=== PATIENT | female | born 1975 | race African-American/Black ===

== ENCOUNTER 2018-10-28 15:21 | Inpatient (IN) | payer MEDICAID, OTHER ==
[~2018-10-28] VITALS: Ht 144.8 cm; Wt 108.4 kg
[2018-10-28] MEDS ORDERED: PREDNISONE 20MG TABLET PO STA (15:52)
[2018-10-28] MEDS ORDERED: ALBUTEROL (0.083%) 2.5MG/3ML NEB HHN STA (15:52)
[2018-10-28 16:52] LABS: BASOPHILS % 0.7 % (0.0-2.0); EOSINOPHILS % 1.2 % (0.0-5.0); HEMATOCRIT. 37.6 % (36.0-48.0); MEAN CORPUSCULAR HEMOGLOBIN 26.4 pg (28.0-32.0); MEAN CORPUSCULAR VOLUME 82.5 fL (81.0-99.0); MEAN PLATELET VOLUME 7.8 fl (7.4-10.4); MONOCYTES % 7.6 % (2.0-8.0); NEUTROPHILS % 72.5 % (40.0-76.0); PLATELET 315 x1000/uL (130-400); RED BLOOD CELL COUNT 4.56 mill/uL (4.2-5.4); RED CELL DISTRIBUTION WIDTH 18.9 % (11.6-14.6)
[2018-10-28 16:57] LABS: CHLORIDE 108 mEq/L (98-107)
[2018-10-28 16:58] LABS: HCG SCREEN NEGATIVE
[2018-10-28] MEDS ORDERED: FUROSEMIDE 40MG/4ML VIAL IV ONE (17:30)
[2018-10-28] MEDS ORDERED: ASPIRIN 81MG TABLET PO ONE (17:30)
[2018-10-28] MEDS ORDERED: HYDROCODONE/ACETAMINOPHEN 10/325MG TABLET PO PRN (21:15)
[2018-10-28] MEDS ORDERED: ONDANSETRON HCL 4MG/2ML INJ IV PRN (21:15)
[2018-10-28] MEDS ORDERED: MAGNESIUM/ALUMINUM HYDROXIDE/SIMETHICONE 30ML UDC PO PRN (21:15)
[2018-10-28] MEDS ORDERED: GUAIFENESIN 200MG/10ML SUGAR FREE UDC PO PRN (21:15)
[2018-10-28 21:36] VITALS: BP 154/89
[2018-10-28] MEDS ORDERED: DEXTROSE 50% WATER 50ML SYRINGE IV PRN (22:45)
[2018-10-28] MEDS ORDERED: FLOV11 IH (23:14)
[2018-10-28] MEDS ORDERED: METF-414 PO (23:14)
[2018-10-28] MEDS ORDERED: FURO-151 PO (23:14)
[2018-10-28] MEDS ORDERED: ASPI-1393 PO (23:14)
[2018-10-28] MEDS ORDERED: ATOR10TA PO (23:14)
[2018-10-28] MEDS ORDERED: BENA40TA9 PO (23:14)
[2018-10-28] MEDS ORDERED: ALBU05 IH (23:14)
[2018-10-28] MEDS ORDERED: RISP1TAB26 PO (23:14)
[2018-10-28] MEDS ORDERED: COREG PO (23:14)
[2018-10-28] MEDS: IPRATROPIUM/ALBUTEROL 0.5-3(2.5)MG/3ML NEB NEB PRN (23:54)
[2018-10-29] VITALS: BP 170/94
[2018-10-29 02:25] LABS: CHLORIDE 109 mEq/L (98-107)
[2018-10-29 02:35] LABS: CREATINE KINASE 104 IU/L (26-192)
[2018-10-29 02:37] LABS: CREATINE KINASE MB FRACTION 1.5 ng/mL (0.5-3.6)
[2018-10-29] MEDS: IPRATROPIUM/ALBUTEROL 0.5-3(2.5)MG/3ML NEB NEB PRN ×2 (03:51→20:56)
[2018-10-29 04:00] VITALS: BP 178/95
[2018-10-29] MEDS: METHYLPREDNISOLONE SOD SUCC 40 MG/ML VIAL IV SCH ×3 (05:11→21:26)
[2018-10-29] MEDS: CLONIDINE 0.1MG TABLET PO PRN (05:11)
[2018-10-29 06:35] LABS: BASOPHILS % 0.4 % (0.0-2.0); HEMATOCRIT. 39.1 % (36.0-48.0); HEMOGLOBIN. 12.4 g/dL (12.0-16.0); MEAN CORPUSCULAR HEMOGLOBIN 26.3 pg (28.0-32.0); MEAN CORPUSCULAR VOLUME 82.8 fL (81.0-99.0); MEAN PLATELET VOLUME 8.2 fl (7.4-10.4); MONOCYTES % 5.5 % (2.0-8.0); NEUTROPHILS % 84.1 % (40.0-76.0); PLATELET 372 x1000/uL (130-400); RED BLOOD CELL COUNT 4.72 mill/uL (4.2-5.4); RED CELL DISTRIBUTION WIDTH 19.1 % (11.6-14.6)
[2018-10-29 06:38] LABS: CLARITY URINE CLEAR (CLEAR); COLOR URINE YELLOW (YELLOW); KETONES URINE NEGATIVE (NEGATIVE); LEUKOCYTE ESTERASE URINE TRACE (NEGATIVE); NITRITE URINE NEGATIVE (NEGATIVE); OCCULT BLOOD URINE 3+ (NEGATIVE); PROTEIN URINE TRACE (NEGATIVE); SPECIFIC GRAVITY URINE 1.017 (1.005-1.030)
[2018-10-29] MEDS: BLOOD SUGAR DIAGNOSTIC STRIP TEST SCH ×4 (06:44→21:28)
[2018-10-29 07:05] LABS: CREATINE KINASE MB FRACTION 1.5 ng/mL (0.5-3.6)
[2018-10-29 07:12] LABS: METHADONE URINE SCREEN NEGATIVE (NEGATIVE); OPIATES URINE SCREEN NEGATIVE (NEGATIVE)
[2018-10-29 07:13] LABS: *AMPHETAMINES SCREEN URINE NEGATIVE (NEGATIVE); *BARBITURATES SCREEN URINE NEGATIVE (NEGATIVE); *BENZODIAZEPINES SCREEN URINE NEGATIVE (NEGATIVE); *COCAINE SCREEN URINE NEGATIVE (NEGATIVE); CANNABINOID URINE SCREEN NEGATIVE (NEGATIVE); PHENCYCLIDINE URINE SCREEN NEGATIVE (NEGATIVE)
[2018-10-29] MEDS: INSULIN LISPRO 100 UNITS/ML SUBCUT SCH ×4 (07:50→22:00)
[2018-10-29 08:12] VITALS: BP 179/122
[2018-10-29] MEDS: FUROSEMIDE 40MG/4ML VIAL IV SCH ×2 (10:27→18:33)
[2018-10-29] MEDS: ASPIRIN 81MG EC TABLET PO SCH (10:28)
[2018-10-29] MEDS: ENOXAPARIN 30MG/0.3ML SYR SUBCUT SCH ×2 (10:28→21:27)
[2018-10-29 12:52] VITALS: BP 153/88
[2018-10-29 16:05] VITALS: BP 152/83
[2018-10-29 20:00] VITALS: BP 151/78
[2018-10-29] MEDS: CARVEDILOL 6.25 MG TABLET PO SCH (21:28)
[2018-10-29] MEDS: AMLODIPINE 5MG TABLET PO SCH (21:28)
[2018-10-29] MEDS ORDERED: IOHEXOL-350 100 ML BOTTLE ONE (22:10)
[2018-10-30] VITALS: BP 164/103
[2018-10-30] MEDS: CLONIDINE 0.1MG TABLET PO PRN (00:45)
[2018-10-30 04:00] VITALS: BP 159/98
[2018-10-30] MEDS: METHYLPREDNISOLONE SOD SUCC 40 MG/ML VIAL IV SCH ×3 (05:12→21:42)
[2018-10-30 06:49] LABS: HEMATOCRIT. 37.6 % (36.0-48.0); HEMOGLOBIN. 12.1 g/dL (12.0-16.0); MEAN CORPUSCULAR HEMOGLOBIN 26.6 pg (28.0-32.0); MEAN CORPUSCULAR VOLUME 82.4 fL (81.0-99.0); MEAN PLATELET VOLUME 8.3 fl (7.4-10.4); PLATELET 372 x1000/uL (130-400); RED BLOOD CELL COUNT 4.56 mill/uL (4.2-5.4); RED CELL DISTRIBUTION WIDTH 19.1 % (11.6-14.6)
[2018-10-30 07:01] LABS: CHLORIDE 103 mEq/L (98-107)
[2018-10-30 08:00] VITALS: BP 147/91
[2018-10-30] MEDS: BLOOD SUGAR DIAGNOSTIC STRIP TEST SCH ×4 (08:03→21:50)
[2018-10-30] MEDS: INSULIN LISPRO 100 UNITS/ML SUBCUT SCH ×3 (08:18→21:48)
[2018-10-30] MEDS: ASPIRIN 81MG EC TABLET PO SCH (08:45)
[2018-10-30] MEDS: FUROSEMIDE 40MG/4ML VIAL IV SCH ×2 (08:45→16:51)
[2018-10-30] MEDS: AMLODIPINE 5MG TABLET PO SCH ×2 (08:46→21:43)
[2018-10-30] MEDS: CARVEDILOL 6.25 MG TABLET PO SCH ×2 (08:46→21:43)
[2018-10-30] MEDS: ENOXAPARIN 30MG/0.3ML SYR SUBCUT SCH ×2 (08:47→21:42)
[2018-10-30 12:00] VITALS: BP 136/90
[2018-10-30 16:00] VITALS: BP 144/88
[2018-10-30 19:16] LABS: PLATELET ESTIMATE NORMAL
[2018-10-30 20:00] VITALS: BP 166/102
[2018-10-31] VITALS: BP 151/98
[2018-10-31 04:00] VITALS: BP 155/87
[2018-10-31] MEDS: METHYLPREDNISOLONE SOD SUCC 40 MG/ML VIAL IV SCH ×3 (05:08→21:44)
[2018-10-31] MEDS: BLOOD SUGAR DIAGNOSTIC STRIP TEST SCH ×4 (06:52→20:49)
[2018-10-31 07:37] LABS: CHLORIDE 103 mEq/L (98-107)
[2018-10-31] MEDS: INSULIN LISPRO 100 UNITS/ML SUBCUT SCH ×4 (07:54→21:56)
[2018-10-31 07:59] LABS: PHOSPHORUS 3.6 mg/dL (2.5-4.9)
[2018-10-31 08:00] VITALS: BP 166/103
[2018-10-31] MEDS: AMLODIPINE 5MG TABLET PO SCH ×2 (08:36→20:49)
[2018-10-31] MEDS: ASPIRIN 81MG EC TABLET PO SCH (08:36)
[2018-10-31] MEDS: CARVEDILOL 6.25 MG TABLET PO SCH ×2 (08:37→20:49)
[2018-10-31] MEDS: ENOXAPARIN 30MG/0.3ML SYR SUBCUT SCH ×2 (08:37→20:47)
[2018-10-31] MEDS ORDERED: FLUTICASONE PROPIONATE 50MCG/SPRAY BOTTLE BOTHNSTRLS SCH (09:00)
[2018-10-31] MEDS: FUROSEMIDE 40MG/4ML VIAL IV SCH ×2 (10:17→17:48)
[2018-10-31 12:00] VITALS: BP 146/86
[2018-10-31] MEDS: FLUTICASONE PROPIONATE 50MCG/SPRAY BOTTLE BOTHNSTRLS SCH ×2 (13:00→20:47)
[2018-10-31] MEDS: GUAIFENESIN-DM 200MG-20MG/10ML UDC PO PRN (14:26)
[2018-10-31] MEDS: CLONIDINE 0.2MG TABLET PO SCH ×2 (14:26→21:45)
[2018-10-31 16:00] VITALS: BP 151/96
[2018-10-31 19:58] VITALS: BP 135/68
[2018-11-01] VITALS: BP 122/51
[2018-11-01 04:00] VITALS: BP 142/52
[2018-11-01] MEDS: METHYLPREDNISOLONE SOD SUCC 40 MG/ML VIAL IV SCH ×2 (05:17→13:41)
[2018-11-01] MEDS: CLONIDINE 0.2MG TABLET PO SCH ×3 (05:17→21:16)
[2018-11-01] MEDS: BLOOD SUGAR DIAGNOSTIC STRIP TEST SCH ×4 (06:41→21:16)
[2018-11-01 08:00] VITALS: BP 124/94
[2018-11-01] MEDS: ACETYLCYSTEINE 100MG/ML 10% VIAL 4ML INH SCH (09:04)
[2018-11-01] MEDS: FUROSEMIDE 40MG/4ML VIAL IV SCH ×2 (09:10→21:17)
[2018-11-01] MEDS: ENOXAPARIN 30MG/0.3ML SYR SUBCUT SCH ×2 (09:11→21:17)
[2018-11-01] MEDS: ASPIRIN 81MG EC TABLET PO SCH (09:11)
[2018-11-01] MEDS: AMLODIPINE 5MG TABLET PO SCH ×2 (09:12→21:15)
[2018-11-01] MEDS: CARVEDILOL 6.25 MG TABLET PO SCH ×2 (09:12→21:16)
[2018-11-01] MEDS: FLUTICASONE PROPIONATE 50MCG/SPRAY BOTTLE BOTHNSTRLS SCH ×3 (09:23→21:17)
[2018-11-01] MEDS: INSULIN LISPRO 100 UNITS/ML SUBCUT SCH ×4 (09:29→21:15)
[2018-11-01 12:00] VITALS: BP 158/100
[2018-11-01] MEDS ORDERED: CEFTRIAXONE 1 G PREMIX 50 ML IV SCH (17:30)
[2018-11-01 20:00] VITALS: BP 143/68
[2018-11-01] MEDS: IPRATROPIUM/ALBUTEROL 0.5-3(2.5)MG/3ML NEB HHN SCH (20:46)
[2018-11-01] MEDS: CEFTRIAXONE 1 G PREMIX 50 ML IV SCH (21:16)
[2018-11-01] MEDS: GUAIFENESIN-DM 200MG-20MG/10ML UDC PO PRN (22:22)
[2018-11-01] MEDS: DOCUSATE SODIUM 100MG CAPSULE PO PRN (22:23)
[2018-11-02] VITALS (7 sets, daily range): BP systolic 102–160; BP diastolic 70–96
[2018-11-02] MEDS: IPRATROPIUM/ALBUTEROL 0.5-3(2.5)MG/3ML NEB HHN SCH ×7 (04:00→23:50)
[2018-11-02] MEDS: CLONIDINE 0.2MG TABLET PO SCH ×3 (05:11→21:16)
[2018-11-02] MEDS: BLOOD SUGAR DIAGNOSTIC STRIP TEST SCH ×4 (06:43→21:17)
[2018-11-02] MEDS: INSULIN LISPRO 100 UNITS/ML SUBCUT SCH ×4 (07:50→21:15)
[2018-11-02] MEDS ORDERED: PREDNISONE 20MG TABLET PO SCH (09:00)
[2018-11-02] MEDS: FLUTICASONE PROPIONATE 50MCG/SPRAY BOTTLE BOTHNSTRLS SCH ×2 (09:28→21:17)
[2018-11-02] MEDS: FUROSEMIDE 40MG/4ML VIAL IV SCH ×2 (09:29→18:31)
[2018-11-02] MEDS: ASPIRIN 81MG EC TABLET PO SCH (09:29)
[2018-11-02] MEDS: CARVEDILOL 6.25 MG TABLET PO SCH ×2 (09:29→21:16)
[2018-11-02] MEDS: AMLODIPINE 5MG TABLET PO SCH ×2 (09:30→21:16)
[2018-11-02] MEDS: ENOXAPARIN 30MG/0.3ML SYR SUBCUT SCH ×2 (09:31→21:17)
[2018-11-02] MEDS: ACETYLCYSTEINE 100MG/ML 10% VIAL 4ML INH SCH ×2 (16:59→23:50)
[2018-11-02] MEDS: DOCUSATE SODIUM 100MG CAPSULE PO PRN (21:16)
[2018-11-02] MEDS: CEFTRIAXONE 1 G PREMIX 50 ML IV SCH (21:17)
[2018-11-02] MEDS: GUAIFENESIN-DM 200MG-20MG/10ML UDC PO PRN (21:17)
[2018-11-03] VITALS: BP 151/90
[2018-11-03 04:00] VITALS: BP 157/102
[2018-11-03] MEDS: IPRATROPIUM/ALBUTEROL 0.5-3(2.5)MG/3ML NEB HHN SCH ×5 (05:29→22:55)
[2018-11-03] MEDS: CLONIDINE 0.2MG TABLET PO SCH ×3 (05:42→21:36)
[2018-11-03] MEDS: BLOOD SUGAR DIAGNOSTIC STRIP TEST SCH ×4 (06:31→21:35)
[2018-11-03 07:10] LABS: BASOPHILS % 0.2 % (0.0-2.0); EOSINOPHILS % 0.2 % (0.0-5.0); HEMATOCRIT. 42.1 % (36.0-48.0); HEMOGLOBIN. 13.2 g/dL (12.0-16.0); LYMPHOCYTES % 16.5 % (20.0-50.0); MEAN CORPUSCULAR VOLUME 83.1 fL (81.0-99.0); MEAN PLATELET VOLUME 8.2 fl (7.4-10.4); MONOCYTES % 11.2 % (2.0-8.0); NEUTROPHILS % 71.9 % (40.0-76.0); PLATELET 415 x1000/uL (130-400); RED BLOOD CELL COUNT 5.07 mill/uL (4.2-5.4); RED CELL DISTRIBUTION WIDTH 18.2 % (11.6-14.6)
[2018-11-03] MEDS: INSULIN LISPRO 100 UNITS/ML SUBCUT SCH ×4 (07:50→21:00)
[2018-11-03 08:15] LABS: CHLORIDE 95 mEq/L (98-107)
[2018-11-03] MEDS: ASPIRIN 81MG EC TABLET PO SCH (08:57)
[2018-11-03] MEDS: PREDNISONE 20MG TABLET PO SCH (08:57)
[2018-11-03] MEDS: FUROSEMIDE 40MG/4ML VIAL IV SCH ×2 (08:57→16:54)
[2018-11-03] MEDS: FLUTICASONE PROPIONATE 50MCG/SPRAY BOTTLE BOTHNSTRLS SCH ×2 (08:58→21:31)
[2018-11-03] MEDS: CARVEDILOL 6.25 MG TABLET PO SCH ×2 (08:58→21:33)
[2018-11-03] MEDS: ENOXAPARIN 30MG/0.3ML SYR SUBCUT SCH ×2 (09:01→21:35)
[2018-11-03] MEDS: AMLODIPINE 5MG TABLET PO SCH ×2 (09:01→21:33)
[2018-11-03 12:00] VITALS: BP 122/83
[2018-11-03] MEDS ORDERED: POTASSIUM CHLORIDE 20MEQ/PACKET PO NR (13:00)
[2018-11-03] MEDS ORDERED: POTASSIUM CHLORIDE INJ 40 MEQ in DEXT 5% WATER 250 ML IV ONE (15:00)
[2018-11-03 16:00] VITALS: BP 115/79
[2018-11-03] MEDS: ACETYLCYSTEINE 100MG/ML 10% VIAL 4ML INH SCH (17:42)
[2018-11-03 20:00] VITALS: BP 113/68
[2018-11-03 21:11] LABS: CHLORIDE 96 mEq/L (98-107)
[2018-11-03] MEDS: CEFTRIAXONE 1 G PREMIX 50 ML IV SCH (21:35)
[2018-11-03] MEDS: DOCUSATE SODIUM 100MG CAPSULE PO PRN (21:36)
[2018-11-04] VITALS: BP 125/59
[2018-11-04] MEDS: IPRATROPIUM/ALBUTEROL 0.5-3(2.5)MG/3ML NEB HHN SCH ×6 (01:53→21:35)
[2018-11-04 04:00] VITALS: BP 134/76
[2018-11-04] MEDS: CLONIDINE 0.2MG TABLET PO SCH ×3 (06:10→22:20)
[2018-11-04] MEDS: BLOOD SUGAR DIAGNOSTIC STRIP TEST SCH ×4 (06:25→20:09)
[2018-11-04 08:00] VITALS: BP 128/85
[2018-11-04] MEDS: ACETYLCYSTEINE 100MG/ML 10% VIAL 4ML INH SCH ×2 (08:06→16:25)
[2018-11-04] MEDS: FLUTICASONE PROPIONATE 50MCG/SPRAY BOTTLE BOTHNSTRLS SCH (08:28)
[2018-11-04] MEDS: FUROSEMIDE 40MG/4ML VIAL IV SCH ×2 (08:29→17:23)
[2018-11-04] MEDS: PREDNISONE 20MG TABLET PO SCH (08:29)
[2018-11-04] MEDS: CARVEDILOL 6.25 MG TABLET PO SCH ×2 (08:29→20:21)
[2018-11-04] MEDS: ENOXAPARIN 30MG/0.3ML SYR SUBCUT SCH ×2 (08:29→20:22)
[2018-11-04] MEDS: AMLODIPINE 5MG TABLET PO SCH ×2 (08:29→20:22)
[2018-11-04] MEDS: ASPIRIN 81MG EC TABLET PO SCH (08:29)
[2018-11-04] MEDS: INSULIN LISPRO 100 UNITS/ML SUBCUT SCH ×4 (08:36→20:32)
[2018-11-04 08:53] LABS: BASOPHILS % 0.4 % (0.0-2.0); EOSINOPHILS % 2.3 % (0.0-5.0); HEMATOCRIT. 43.3 % (36.0-48.0); HEMOGLOBIN. 13.7 g/dL (12.0-16.0); LYMPHOCYTES % 22.2 % (20.0-50.0); MEAN CORPUSCULAR HEMOGLOBIN 26.3 pg (28.0-32.0); MEAN CORPUSCULAR VOLUME 83.1 fL (81.0-99.0); MEAN PLATELET VOLUME 8.3 fl (7.4-10.4); NEUTROPHILS % 64.1 % (40.0-76.0); PLATELET 472 x1000/uL (130-400); RED BLOOD CELL COUNT 5.22 mill/uL (4.2-5.4); RED CELL DISTRIBUTION WIDTH 18.3 % (11.6-14.6)
[2018-11-04 09:02] LABS: CHLORIDE 98 mEq/L (98-107)
[2018-11-04 12:00] VITALS: BP 135/84
[2018-11-04 16:00] VITALS: BP 138/96
[2018-11-04 20:00] VITALS: BP 118/71
[2018-11-04] MEDS: AZELASTINE HCL 137MCG/SPRAY NASAL PUMP BOTHNSTRLS SCH (20:21)
[2018-11-04] MEDS: LORATADINE 10MG TABLET PO SCH (20:21)
[2018-11-04] MEDS: CEFTRIAXONE 1 G PREMIX 50 ML IV SCH (20:32)
[2018-11-05] VITALS: BP 125/79
[2018-11-05] MEDS: ACETYLCYSTEINE 100MG/ML 10% VIAL 4ML INH SCH ×3 (00:34→15:41)
[2018-11-05] MEDS: IPRATROPIUM/ALBUTEROL 0.5-3(2.5)MG/3ML NEB HHN SCH ×6 (00:37→20:59)
[2018-11-05 04:00] VITALS: BP 128/72
[2018-11-05] MEDS: CLONIDINE 0.2MG TABLET PO SCH ×3 (05:47→22:00)
[2018-11-05 06:52] LABS: BASOPHILS % 0.5 % (0.0-2.0); HEMATOCRIT. 43.2 % (36.0-48.0); HEMOGLOBIN. 13.8 g/dL (12.0-16.0); LYMPHOCYTES % 23.5 % (20.0-50.0); MEAN CORPUSCULAR HEMOGLOBIN 26.5 pg (28.0-32.0); MEAN PLATELET VOLUME 8.4 fl (7.4-10.4); MONOCYTES % 8.9 % (2.0-8.0); NEUTROPHILS % 66.1 % (40.0-76.0); PLATELET 429 x1000/uL (130-400); RED CELL DISTRIBUTION WIDTH 18.6 % (11.6-14.6)
[2018-11-05 07:30] LABS: CHLORIDE 98 mEq/L (98-107)
[2018-11-05] MEDS: BLOOD SUGAR DIAGNOSTIC STRIP TEST SCH ×4 (07:58→21:24)
[2018-11-05 08:00] VITALS: BP 136/76
[2018-11-05] MEDS: FUROSEMIDE 40MG/4ML VIAL IV SCH ×2 (08:42→17:35)
[2018-11-05] MEDS: ENOXAPARIN 30MG/0.3ML SYR SUBCUT SCH ×2 (08:42→20:53)
[2018-11-05] MEDS: INSULIN LISPRO 100 UNITS/ML SUBCUT SCH ×4 (08:43→21:24)
[2018-11-05] MEDS: ASPIRIN 81MG EC TABLET PO SCH (08:48)
[2018-11-05] MEDS: AMLODIPINE 5MG TABLET PO SCH ×2 (08:49→20:53)
[2018-11-05] MEDS: CARVEDILOL 6.25 MG TABLET PO SCH ×2 (08:49→20:53)
[2018-11-05] MEDS: AZELASTINE HCL 137MCG/SPRAY NASAL PUMP BOTHNSTRLS SCH ×2 (10:04→21:36)
[2018-11-05 12:00] VITALS: BP 126/76
[2018-11-05] MEDS: DOCUSATE SODIUM 250MG CAPSULE PO SCH (12:00)
[2018-11-05] MEDS ORDERED: BISACODYL 5MG TABLET PO PRN (12:00)
[2018-11-05 16:00] VITALS: BP 138/96
[2018-11-05 20:00] VITALS: BP 119/81
[2018-11-05] MEDS: RISPERIDONE 1MG TABLET PO SCH (20:54)
[2018-11-05] MEDS: CEFTRIAXONE 1 G PREMIX 50 ML IV SCH (20:54)
[2018-11-05] MEDS: LORATADINE 10MG TABLET PO SCH (20:54)
[2018-11-06] VITALS: BP 125/78
[2018-11-06] MEDS: ACETYLCYSTEINE 100MG/ML 10% VIAL 4ML INH SCH ×3 (01:04→16:28)
[2018-11-06] MEDS: IPRATROPIUM/ALBUTEROL 0.5-3(2.5)MG/3ML NEB HHN SCH ×6 (01:04→20:21)
[2018-11-06 04:00] VITALS: BP 137/91
[2018-11-06] MEDS: CLONIDINE 0.2MG TABLET PO SCH ×3 (06:02→21:54)
[2018-11-06] MEDS: BLOOD SUGAR DIAGNOSTIC STRIP TEST SCH ×4 (06:02→21:47)
[2018-11-06] MEDS: INSULIN LISPRO 100 UNITS/ML SUBCUT SCH ×4 (07:50→21:50)
[2018-11-06 08:00] VITALS: BP 131/66
[2018-11-06] MEDS: ENOXAPARIN 30MG/0.3ML SYR SUBCUT SCH ×2 (09:00→21:46)
[2018-11-06] MEDS: FUROSEMIDE 40MG/4ML VIAL IV SCH ×2 (10:18→18:42)
[2018-11-06] MEDS: RISPERIDONE 1MG TABLET PO SCH ×2 (10:18→21:45)
[2018-11-06] MEDS: DOCUSATE SODIUM 250MG CAPSULE PO SCH (10:18)
[2018-11-06] MEDS: AZELASTINE HCL 137MCG/SPRAY NASAL PUMP BOTHNSTRLS SCH ×2 (10:19→21:47)
[2018-11-06] MEDS: CARVEDILOL 6.25 MG TABLET PO SCH ×2 (10:19→21:45)
[2018-11-06] MEDS: ASPIRIN 81MG EC TABLET PO SCH (10:19)
[2018-11-06] MEDS: AMLODIPINE 5MG TABLET PO SCH ×2 (10:19→21:44)
[2018-11-06 12:00] VITALS: BP 135/81
[2018-11-06 20:00] VITALS: BP 159/69
[2018-11-06] MEDS: LORATADINE 10MG TABLET PO SCH (21:46)
[2018-11-06] MEDS: CEFTRIAXONE 1 G PREMIX 50 ML IV SCH (21:54)
[2018-11-07] VITALS: BP 133/66
[2018-11-07] MEDS: IPRATROPIUM/ALBUTEROL 0.5-3(2.5)MG/3ML NEB HHN SCH ×6 (00:42→20:36)
[2018-11-07] MEDS: ACETYLCYSTEINE 100MG/ML 10% VIAL 4ML INH SCH (00:43)
[2018-11-07 04:00] VITALS: BP 142/61
[2018-11-07] MEDS: BLOOD SUGAR DIAGNOSTIC STRIP TEST SCH ×4 (06:39→20:57)
[2018-11-07] MEDS: CLONIDINE 0.2MG TABLET PO SCH ×3 (06:39→22:15)
[2018-11-07] MEDS: INSULIN LISPRO 100 UNITS/ML SUBCUT SCH ×4 (07:50→21:00)
[2018-11-07 08:00] VITALS: BP 131/94
[2018-11-07] MEDS: AZELASTINE HCL 137MCG/SPRAY NASAL PUMP BOTHNSTRLS SCH ×2 (09:00→20:55)
[2018-11-07] MEDS: FUROSEMIDE 40MG/4ML VIAL IV SCH ×2 (09:05→18:34)
[2018-11-07] MEDS: ASPIRIN 81MG EC TABLET PO SCH (09:05)
[2018-11-07] MEDS: DOCUSATE SODIUM 250MG CAPSULE PO SCH (09:13)
[2018-11-07] MEDS: AMLODIPINE 5MG TABLET PO SCH ×2 (09:13→20:56)
[2018-11-07] MEDS: CARVEDILOL 6.25 MG TABLET PO SCH ×2 (09:14→20:57)
[2018-11-07] MEDS: ENOXAPARIN 30MG/0.3ML SYR SUBCUT SCH ×2 (09:17→20:55)
[2018-11-07] MEDS: RISPERIDONE 1MG TABLET PO SCH ×2 (09:17→20:56)
[2018-11-07 20:00] VITALS: BP 119/63
[2018-11-07] MEDS: LORATADINE 10MG TABLET PO SCH (20:56)
[2018-11-07] MEDS: ACETAMINOPHEN 325MG TABLET PO PRN (20:57)
[2018-11-07] MEDS: CEFTRIAXONE 1 G PREMIX 50 ML IV SCH (21:08)
[2018-11-08] VITALS: BP 103/52
[2018-11-08] MEDS: IPRATROPIUM/ALBUTEROL 0.5-3(2.5)MG/3ML NEB HHN SCH ×6 (00:30→20:17)
[2018-11-08 04:00] VITALS: BP 115/81
[2018-11-08] MEDS: CLONIDINE 0.2MG TABLET PO SCH ×3 (05:23→22:00)
[2018-11-08] MEDS: BLOOD SUGAR DIAGNOSTIC STRIP TEST SCH ×4 (07:17→21:23)
[2018-11-08] MEDS: INSULIN LISPRO 100 UNITS/ML SUBCUT SCH ×4 (07:50→21:00)
[2018-11-08] MEDS: RISPERIDONE 1MG TABLET PO SCH ×3 (09:00→21:20)
[2018-11-08] MEDS: DOCUSATE SODIUM 250MG CAPSULE PO SCH ×2 (09:00→09:40)
[2018-11-08] MEDS: AMLODIPINE 5MG TABLET PO SCH ×2 (09:39→21:21)
[2018-11-08] MEDS: FUROSEMIDE 40MG/4ML VIAL IV SCH (09:39)
[2018-11-08] MEDS: ASPIRIN 81MG EC TABLET PO SCH (09:40)
[2018-11-08] MEDS: CARVEDILOL 6.25 MG TABLET PO SCH ×2 (09:40→21:21)
[2018-11-08] MEDS: AZELASTINE HCL 137MCG/SPRAY NASAL PUMP BOTHNSTRLS SCH ×2 (09:41→21:22)
[2018-11-08] MEDS: ENOXAPARIN 30MG/0.3ML SYR SUBCUT SCH ×2 (09:43→21:23)
[2018-11-08] MEDS ORDERED: COR6 PO (10:02)
[2018-11-08] MEDS ORDERED: CLAR10 PO (10:02)
[2018-11-08] MEDS ORDERED: CLON0.2T12 PO (10:02)
[2018-11-08] MEDS ORDERED: AZIT500T5 MT (10:02)
[2018-11-08] MEDS ORDERED: TUSSL PO (10:09)
[2018-11-08 12:30] VITALS: BP 132/94
[2018-11-08 15:22] LABS: CHLORIDE 103 mEq/L (98-107)
[2018-11-08 15:28] LABS: PHOSPHORUS 3.5 mg/dL (2.5-4.9)
[2018-11-08 16:15] VITALS: BP 126/76
[2018-11-08 20:00] VITALS: BP 106/59
[2018-11-08] MEDS ORDERED: GUAIFENESIN 600MG ER TABLET PO SCH (21:00)
[2018-11-08] MEDS: ACETAMINOPHEN 325MG TABLET PO PRN (21:20)
[2018-11-08] MEDS: LORATADINE 10MG TABLET PO SCH (21:21)
[2018-11-09] VITALS: BP 119/63
[2018-11-09] MEDS: IPRATROPIUM/ALBUTEROL 0.5-3(2.5)MG/3ML NEB HHN SCH ×2 (00:38→04:37)
[2018-11-09 04:00] VITALS: BP 111/64
[2018-11-09 04:59] VITALS: BP 111/64
[2018-11-09] MEDS: CLONIDINE 0.2MG TABLET PO SCH (06:00)
[2018-11-09] MEDS: BLOOD SUGAR DIAGNOSTIC STRIP TEST SCH (06:57)
[2018-11-09] MEDS ORDERED: FUROSEMIDE 40MG TABLET PO SCH (09:00)
== END 2018-11-09 06:15 | disposition home or self-care (01) | DRG 720 ==
LOC: ER 16:08 → 6WST 19:15 → ENRESERV 20:15
PROVIDERS: ADMIT Internal Medicine; ATTEND Internal Medicine
DX: A41.9 Sepsis, unspecified organism (principal); J96.00 Acute respiratory failure, unspecified whether with hypoxia or hypercapnia; I47.2 Ventricular tachycardia; I50.23 Acute on chronic systolic (congestive) heart failure; J18.1 Lobar pneumonia, unspecified organism; I11.0 Hypertensive heart disease with heart failure; I27.20 Pulmonary hypertension, unspecified; E66.01 Morbid (severe) obesity due to excess calories; I42.9 Cardiomyopathy, unspecified; I07.1 Rheumatic tricuspid insufficiency; F20.9 Schizophrenia, unspecified; J44.0 Chronic obstructive pulmonary disease with (acute) lower respiratory infection; E11.9 Type 2 diabetes mellitus without complications; F31.9 Bipolar disorder, unspecified; Z68.43 Body mass index [BMI] 50.0-59.9, adult; R59.0 Localized enlarged lymph nodes; E78.5 Hyperlipidemia, unspecified; F17.210 Nicotine dependence, cigarettes, uncomplicated; F41.9 Anxiety disorder, unspecified; K59.00 Constipation, unspecified; M94.0 Chondrocostal junction syndrome [Tietze]; T38.0X5A Adverse effect of glucocorticoids and synthetic analogues, initial encounter; Z59.0 Homelessness; Z91.14 Patient's other noncompliance with medication regimen; Z98.891 History of uterine scar from previous surgery; Z79.51 Long term (current) use of inhaled steroids; Z79.82 Long term (current) use of aspirin; Z79.899 Other long term (current) drug therapy; Z82.49 Family history of ischemic heart disease and other diseases of the circulatory system; Z83.3 Family history of diabetes mellitus; Y92.89 Other specified places as the place of occurrence of the external cause
CPT/HCPCS: 36415; 71045; 71275; 80048; 80061; 80305; 81003; 82550; 82553; 82962; 83036; 83735; 83880; 84100; 84443; 84484; 84703; 85379; 87070; 93005; 93306; 93970; 94618; 94640; 96374; 99285; C1893; J0696; J1650; J1815; J1940; J2920; J3480; J7060; J7512; J7608; J7611; J7620; Q9967

== ENCOUNTER 2018-11-16 16:18 | Inpatient (IN) | payer MEDICAID ==
[~2018-11-16] VITALS: Ht 152.4 cm; Wt 100.2 kg
[~2018-11-16 16:18] MED LIST: ALBU05 IH; ASPI-1393 PO; ATOR10TA PO; AZIT500T5 MT; BENA40TA9 PO; CLAR10 PO; CLON0.2T12 PO; COR6 PO; FLOV11 IH; FURO-151 PO; METF-414 PO; RISP1TAB26 PO; TUSSL PO
[2018-11-16 17:41] LABS: CHLORIDE 109 mEq/L (98-107)
[2018-11-16 17:42] LABS: BASOPHILS % 0.4 % (0.0-2.0); EOSINOPHILS % 1.8 % (0.0-5.0); HEMATOCRIT. 39.9 % (36.0-48.0); HEMOGLOBIN. 12.8 g/dL (12.0-16.0); LYMPHOCYTES % 11.2 % (20.0-50.0); MEAN CORPUSCULAR VOLUME 84.2 fL (81.0-99.0); MEAN PLATELET VOLUME 8.3 fl (7.4-10.4); MONOCYTES % 6.8 % (2.0-8.0); NEUTROPHILS % 79.8 % (40.0-76.0); PLATELET 405 x1000/uL (130-400); RED BLOOD CELL COUNT 4.74 mill/uL (4.2-5.4); RED CELL DISTRIBUTION WIDTH 18.5 % (11.6-14.6)
[2018-11-16 19:22] LABS: CLARITY URINE CLEAR (CLEAR); COLOR URINE YELLOW (YELLOW); KETONES URINE NEGATIVE (NEGATIVE); LEUKOCYTE ESTERASE URINE NEGATIVE (NEGATIVE); NITRITE URINE NEGATIVE (NEGATIVE); OCCULT BLOOD URINE NEGATIVE (NEGATIVE); PROTEIN URINE 2+ (NEGATIVE); SPECIFIC GRAVITY URINE 1.022 (1.005-1.030)
[2018-11-16] MEDS ORDERED: IPRATROPIUM BROMIDE (0.02%) 0.5MG/2.5ML NEB HHN STA (19:26)
[2018-11-16] MEDS ORDERED: ALBUTEROL (0.083%) 2.5MG/3ML NEB HHN STA (19:26)
[2018-11-16] MEDS ORDERED: ACETAMINOPHEN 325MG TABLET PO PRN (20:15)
[2018-11-16] MEDS ORDERED: ONDANSETRON HCL 4MG/2ML INJ IV PRN (20:15)
[2018-11-16] MEDS ORDERED: GUAIFENESIN-DM 200MG-20MG/10ML UDC PO PRN (20:15)
[2018-11-16] MEDS ORDERED: IPRATROPIUM/ALBUTEROL 0.5-3(2.5)MG/3ML NEB HHN PRN ×2 (20:15→22:45)
[2018-11-16 20:19] LABS: HCG SCREEN NEGATIVE
[2018-11-16 20:41] LABS: BG BASE EXCESS 0.2 mmol/L (-2.0-2.0); BG BILEVEL POS AIRWAY PRESSURE 15/5; BG CARBOXYHEMOGLOBIN 0.4 % (0.5-1.5); BG DEOXYHEMOGLOBIN 0.6 % (0.0-5.0); BG FRACTION INSPIRED OXYGEN 60; BG HCO3 ACT 26.6 mmol/L (22.0-26.0); BG METHEMOGLOBIN 0.3 % (0.0-1.5); BG OXYGEN SATURATION 99.4 % (92.0-98.5); BG OXYHEMOGLOBIN 98.7 % (94.0-97.0); BG PCO2 50.5 mmHg (35.0-45.0); BG SAMPLE SITE RIGHT RADIAL; BG TOTAL HEMOGLOBIN 12.8 g/dL (12.0-18.0); BG VENT MODE MASK - BIPAP
[2018-11-16 21:43] VITALS: BP 150/97
[2018-11-16 22:00] VITALS: BP 150/97
[2018-11-16] MEDS ORDERED: IOHEXOL-350 100 ML BOTTLE ONE (22:13)
[2018-11-16] MEDS: LOSARTAN POTASSIUM 50 MG TABLET PO SCH (22:45)
[2018-11-16] MEDS: GUAIFENESIN 600MG ER TABLET PO SCH (22:45)
[2018-11-16 22:57] VITALS: BP 201/109
[2018-11-16] MEDS: CLONIDINE 0.1MG TABLET PO PRN (23:46)
[2018-11-16] MEDS: MORPHINE SULFATE 2 MG/ML CPJ (NOT FOR IM USE) IV PRN (23:47)
[2018-11-17] VITALS (13 sets, daily range): BP systolic 134–183; BP diastolic 75–125
[2018-11-17] MEDS: BUDESONIDE 0.5MG/2ML NEB HHN SCH ×3 (00:14→20:45)
[2018-11-17] MEDS: IPRATROPIUM/ALBUTEROL 0.5-3(2.5)MG/3ML NEB HHN SCH ×7 (00:14→23:52)
[2018-11-17] MEDS: MORPHINE SULFATE 2 MG/ML CPJ (NOT FOR IM USE) IV PRN (04:55)
[2018-11-17 07:20] LABS: BASOPHILS % 0.7 % (0.0-2.0); HEMATOCRIT. 37.5 % (36.0-48.0); HEMOGLOBIN. 11.9 g/dL (12.0-16.0); LYMPHOCYTES % 8.3 % (20.0-50.0); MEAN CORPUSCULAR HEMOGLOBIN 27.2 pg (28.0-32.0); MEAN CORPUSCULAR VOLUME 85.4 fL (81.0-99.0); PLATELET 350 x1000/uL (130-400); RED BLOOD CELL COUNT 4.39 mill/uL (4.2-5.4); RED CELL DISTRIBUTION WIDTH 18.2 % (11.6-14.6)
[2018-11-17 08:17] LABS: CHLORIDE 107 mEq/L (98-107)
[2018-11-17] MEDS: GUAIFENESIN 600MG ER TABLET PO SCH ×2 (09:53→21:18)
[2018-11-17] MEDS: ENOXAPARIN 30MG/0.3ML SYR SUBCUT SCH ×2 (09:53→21:19)
[2018-11-17] MEDS: LOSARTAN POTASSIUM 50 MG TABLET PO SCH (09:53)
[2018-11-17] MEDS: METHYLPREDNISOLONE SOD SUCC 40 MG/ML VIAL IV SCH ×2 (12:20→21:18)
[2018-11-17] MEDS: CLONIDINE 0.1MG TABLET PO PRN ×2 (12:20→18:03)
[2018-11-17] MEDS ORDERED: FUROSEMIDE 40MG/4ML VIAL IVP NR (16:30)
[2018-11-17] MEDS ORDERED: KETOROLAC 30MG/ML VIAL IV PRN (16:30)
[2018-11-17 17:01] LABS: BG BASE EXCESS 2.7 mmol/L (-2.0-2.0); BG DEOXYHEMOGLOBIN 4.5 % (0.0-5.0); BG FRACTION INSPIRED OXYGEN 60; BG METHEMOGLOBIN 0.2 % (0.0-1.5); BG OXYGEN SATURATION 95.4 % (92.0-98.5); BG OXYHEMOGLOBIN 94.3 % (94.0-97.0); BG PCO2 58.1 mmHg (35.0-45.0); BG PH 7.331 (7.350-7.450); BG SAMPLE SITE RIGHT RADIAL; BG TOTAL HEMOGLOBIN 13.4 g/dL (12.0-18.0); BG VENT MODE MASK - SIMPLE
[2018-11-17 18:30] LABS: CANNABINOID URINE SCREEN NEGATIVE (NEGATIVE)
[2018-11-17 18:31] LABS: *AMPHETAMINES SCREEN URINE NEGATIVE (NEGATIVE); *BARBITURATES SCREEN URINE NEGATIVE (NEGATIVE); *BENZODIAZEPINES SCREEN URINE NEGATIVE (NEGATIVE); *COCAINE SCREEN URINE NEGATIVE (NEGATIVE)
[2018-11-17 18:32] LABS: METHADONE URINE SCREEN NEGATIVE (NEGATIVE); OPIATES URINE SCREEN NEGATIVE (NEGATIVE); PHENCYCLIDINE URINE SCREEN NEGATIVE (NEGATIVE)
[2018-11-17] MEDS: AMLODIPINE 5MG TABLET PO SCH (21:19)
[2018-11-17] MEDS: FLUTICASONE PROPIONATE 50MCG/SPRAY BOTTLE BOTHNSTRLS SCH (21:19)
[2018-11-18] VITALS (11 sets, daily range): BP systolic 111–166; BP diastolic 61–121
[2018-11-18] MEDS: IPRATROPIUM/ALBUTEROL 0.5-3(2.5)MG/3ML NEB HHN SCH ×5 (04:36→20:51)
[2018-11-18] MEDS: METHYLPREDNISOLONE SOD SUCC 40 MG/ML VIAL IV SCH ×3 (05:01→21:32)
[2018-11-18 06:40] LABS: CHLORIDE 104 mEq/L (98-107)
[2018-11-18] MEDS: BUDESONIDE 0.5MG/2ML NEB HHN SCH ×2 (07:46→20:51)
[2018-11-18] MEDS: FLUTICASONE PROPIONATE 50MCG/SPRAY BOTTLE BOTHNSTRLS SCH ×2 (09:06→21:33)
[2018-11-18] MEDS: GUAIFENESIN 600MG ER TABLET PO SCH ×2 (09:06→21:33)
[2018-11-18] MEDS: LOSARTAN POTASSIUM 50 MG TABLET PO SCH (09:07)
[2018-11-18] MEDS: ENOXAPARIN 30MG/0.3ML SYR SUBCUT SCH ×2 (09:07→21:32)
[2018-11-18] MEDS: AMLODIPINE 5MG TABLET PO SCH ×2 (09:07→21:33)
[2018-11-18 18:10] LABS: BG BASE EXCESS 6.6 mmol/L (-2.0-2.0); BG CARBOXYHEMOGLOBIN 1.2 % (0.5-1.5); BG DEOXYHEMOGLOBIN 7.9 % (0.0-5.0); BG FRACTION INSPIRED OXYGEN 21; BG HCO3 ACT 32.7 mmol/L (22.0-26.0); BG METHEMOGLOBIN 0.2 % (0.0-1.5); BG OXYHEMOGLOBIN 90.7 % (94.0-97.0); BG PCO2 52.8 mmHg (35.0-45.0); BG PO2 62.2 mmHg (75.0-100.0); BG SAMPLE SITE RIGHT RADIAL; BG TOTAL HEMOGLOBIN 13.6 g/dL (12.0-18.0); BG VENT MODE ROOM AIR
[2018-11-19] VITALS (10 sets, daily range): BP systolic 144–187; BP diastolic 30–99
[2018-11-19] MEDS: IPRATROPIUM/ALBUTEROL 0.5-3(2.5)MG/3ML NEB HHN SCH ×6 (00:21→21:04)
[2018-11-19] MEDS: METHYLPREDNISOLONE SOD SUCC 40 MG/ML VIAL IV SCH (05:52)
[2018-11-19] MEDS: CLONIDINE 0.1MG TABLET PO PRN ×2 (06:18→12:28)
[2018-11-19] MEDS: ENOXAPARIN 30MG/0.3ML SYR SUBCUT SCH ×2 (07:59→20:39)
[2018-11-19] MEDS: GUAIFENESIN 600MG ER TABLET PO SCH ×2 (08:00→20:38)
[2018-11-19] MEDS: AMLODIPINE 5MG TABLET PO SCH ×2 (08:00→20:38)
[2018-11-19] MEDS: LOSARTAN POTASSIUM 50 MG TABLET PO SCH ×2 (08:00→20:39)
[2018-11-19] MEDS: FLUTICASONE PROPIONATE 50MCG/SPRAY BOTTLE BOTHNSTRLS SCH ×2 (08:00→21:55)
[2018-11-19] MEDS: BUDESONIDE 0.5MG/2ML NEB HHN SCH ×2 (08:00→21:04)
[2018-11-20] VITALS: BP 174/95
[2018-11-20] MEDS: IPRATROPIUM/ALBUTEROL 0.5-3(2.5)MG/3ML NEB HHN SCH ×6 (00:52→21:37)
[2018-11-20 04:00] VITALS: BP 154/99
[2018-11-20] MEDS: CLONIDINE 0.1MG TABLET PO PRN (04:07)
[2018-11-20] MEDS ORDERED: HYDROCODONE/ACETAMINOPHEN 5/325MG TABLET PO PRN (04:30)
[2018-11-20] MEDS ORDERED: HYDRALAZINE HCL 50MG TABLET PO SCH (09:00)
[2018-11-20] MEDS: LOSARTAN POTASSIUM 50 MG TABLET PO SCH ×2 (09:00→22:02)
[2018-11-20] MEDS: METHYLPREDNISOLONE SOD SUCC 40 MG/ML VIAL IV SCH (09:00)
[2018-11-20] MEDS: FLUTICASONE PROPIONATE 50MCG/SPRAY BOTTLE BOTHNSTRLS SCH (09:00)
[2018-11-20] MEDS: GUAIFENESIN 600MG ER TABLET PO SCH ×2 (10:53→22:01)
[2018-11-20] MEDS: AMLODIPINE 10MG TABLET PO SCH (10:54)
[2018-11-20] MEDS: ENOXAPARIN 30MG/0.3ML SYR SUBCUT SCH ×2 (10:55→22:02)
[2018-11-20 16:00] VITALS: BP 144/62
[2018-11-20] MEDS: MONTELUKAST SODIUM 10MG TABLET PO SCH (16:55)
[2018-11-20 20:00] VITALS: BP 145/88
[2018-11-20] MEDS: HYDRALAZINE HCL 100MG TABLET PO SCH (22:02)
[2018-11-20] MEDS: DIPHENHYDRAMINE 50MG/ML VIAL IM PRN (22:03)
[2018-11-21] VITALS: BP 146/89
[2018-11-21] MEDS: IPRATROPIUM/ALBUTEROL 0.5-3(2.5)MG/3ML NEB HHN SCH ×7 (01:27→23:29)
[2018-11-21 04:00] VITALS: BP 139/82
[2018-11-21 08:00] VITALS: BP 128/89
[2018-11-21] MEDS: METHYLPREDNISOLONE SOD SUCC 40 MG/ML VIAL IV SCH (09:19)
[2018-11-21] MEDS: ENOXAPARIN 30MG/0.3ML SYR SUBCUT SCH ×2 (09:19→21:44)
[2018-11-21] MEDS: HYDRALAZINE HCL 100MG TABLET PO SCH ×2 (09:20→21:43)
[2018-11-21] MEDS: LOSARTAN POTASSIUM 50 MG TABLET PO SCH ×2 (09:20→21:43)
[2018-11-21] MEDS: GUAIFENESIN 600MG ER TABLET PO SCH ×2 (09:23→21:00)
[2018-11-21] MEDS: AMLODIPINE 10MG TABLET PO SCH (09:23)
[2018-11-21 12:00] VITALS: BP 159/114
[2018-11-21] MEDS: CLONIDINE 0.1MG TABLET PO PRN (13:06)
[2018-11-21 16:00] VITALS: BP 121/100
[2018-11-21] MEDS: MONTELUKAST SODIUM 10MG TABLET PO SCH (16:32)
[2018-11-21] MEDS ORDERED: FUROSEMIDE 20MG TABLET PO NR (19:45)
[2018-11-21 20:00] VITALS: BP 117/68
[2018-11-21] MEDS ORDERED: CLONIDINE 0.1MG TABLET PO SCH (20:00)
[2018-11-21] MEDS: DIPHENHYDRAMINE 50MG/ML VIAL IM PRN (21:44)
[2018-11-21] MEDS: CLONIDINE 0.1MG TABLET PO SCH (23:08)
[2018-11-22] VITALS: BP 117/68
[2018-11-22 04:00] VITALS: BP 150/86
[2018-11-22] MEDS: IPRATROPIUM/ALBUTEROL 0.5-3(2.5)MG/3ML NEB HHN SCH ×4 (04:08→21:07)
[2018-11-22] MEDS: HYDRALAZINE HCL 100MG TABLET PO SCH ×3 (06:01→22:26)
[2018-11-22] MEDS: CLONIDINE 0.1MG TABLET PO SCH ×3 (06:01→22:27)
[2018-11-22 08:00] VITALS: BP 131/71
[2018-11-22] MEDS ORDERED: CLON0.2T MT (08:46)
[2018-11-22] MEDS: ENOXAPARIN 30MG/0.3ML SYR SUBCUT SCH ×2 (09:29→22:24)
[2018-11-22] MEDS: AMLODIPINE 10MG TABLET PO SCH (09:30)
[2018-11-22] MEDS: METHYLPREDNISOLONE SOD SUCC 40 MG/ML VIAL IV SCH (09:31)
[2018-11-22] MEDS: GUAIFENESIN 600MG ER TABLET PO SCH ×2 (09:31→22:24)
[2018-11-22] MEDS: LOSARTAN POTASSIUM 50 MG TABLET PO SCH ×2 (09:31→22:24)
[2018-11-22 12:00] VITALS: BP 169/96
[2018-11-22 16:00] VITALS: BP 147/75
[2018-11-22] MEDS ORDERED: CARV6.2548 MT (16:45)
[2018-11-22] MEDS: MONTELUKAST SODIUM 10MG TABLET PO SCH (17:41)
[2018-11-22] MEDS: FUROSEMIDE 40MG TABLET PO SCH (17:41)
[2018-11-22 20:00] VITALS: BP 162/90
[2018-11-22] MEDS: RISPERIDONE 1MG TABLET PO SCH (22:24)
[2018-11-22] MEDS: CARVEDILOL 6.25 MG TABLET PO SCH (22:26)
[2018-11-22] MEDS: DIPHENHYDRAMINE 50MG/ML VIAL IM PRN (22:46)
[2018-11-23] VITALS: BP 146/74
[2018-11-23] MEDS: IPRATROPIUM/ALBUTEROL 0.5-3(2.5)MG/3ML NEB HHN SCH ×6 (01:14→20:33)
[2018-11-23 04:00] VITALS: BP 166/92
[2018-11-23] MEDS: HYDRALAZINE HCL 100MG TABLET PO SCH ×3 (05:35→22:18)
[2018-11-23] MEDS: CLONIDINE 0.1MG TABLET PO SCH ×3 (05:36→22:18)
[2018-11-23] MEDS: LOSARTAN POTASSIUM 50 MG TABLET PO SCH ×2 (08:47→20:47)
[2018-11-23] MEDS: CARVEDILOL 6.25 MG TABLET PO SCH ×2 (08:47→20:48)
[2018-11-23] MEDS: AMLODIPINE 10MG TABLET PO SCH (08:47)
[2018-11-23] MEDS: METHYLPREDNISOLONE SOD SUCC 40 MG/ML VIAL IV SCH (08:47)
[2018-11-23] MEDS: RISPERIDONE 1MG TABLET PO SCH ×2 (08:47→20:47)
[2018-11-23] MEDS: ENOXAPARIN 30MG/0.3ML SYR SUBCUT SCH ×2 (08:48→20:48)
[2018-11-23] MEDS: GUAIFENESIN 600MG ER TABLET PO SCH ×2 (08:48→20:47)
[2018-11-23] MEDS: FUROSEMIDE 40MG TABLET PO SCH (08:48)
[2018-11-23 16:00] VITALS: BP 106/73
[2018-11-23] MEDS: MONTELUKAST SODIUM 10MG TABLET PO SCH (16:28)
[2018-11-23 20:00] VITALS: BP 130/73
[2018-11-24] VITALS: BP 134/62
[2018-11-24] MEDS: IPRATROPIUM/ALBUTEROL 0.5-3(2.5)MG/3ML NEB HHN SCH ×6 (00:40→21:25)
[2018-11-24] MEDS: HYDRALAZINE HCL 100MG TABLET PO SCH ×3 (05:42→22:45)
[2018-11-24] MEDS: CLONIDINE 0.1MG TABLET PO SCH ×3 (05:43→22:46)
[2018-11-24 08:00] VITALS: BP 128/89
[2018-11-24] MEDS: RISPERIDONE 1MG TABLET PO SCH ×2 (08:38→22:45)
[2018-11-24] MEDS: LOSARTAN POTASSIUM 50 MG TABLET PO SCH ×2 (08:38→22:45)
[2018-11-24] MEDS: GUAIFENESIN 600MG ER TABLET PO SCH ×2 (08:38→22:44)
[2018-11-24] MEDS: AMLODIPINE 10MG TABLET PO SCH (08:38)
[2018-11-24] MEDS: FUROSEMIDE 40MG TABLET PO SCH (08:38)
[2018-11-24] MEDS: METHYLPREDNISOLONE SOD SUCC 40 MG/ML VIAL IV SCH (08:38)
[2018-11-24] MEDS: CARVEDILOL 6.25 MG TABLET PO SCH ×2 (08:38→22:45)
[2018-11-24] MEDS: ENOXAPARIN 30MG/0.3ML SYR SUBCUT SCH ×2 (08:39→22:44)
[2018-11-24 12:00] VITALS: BP 148/85
[2018-11-24 16:00] VITALS: BP 130/81
[2018-11-24] MEDS: MONTELUKAST SODIUM 10MG TABLET PO SCH (17:02)
[2018-11-24 20:00] VITALS: BP 141/75
[2018-11-25] VITALS: BP 155/85
[2018-11-25] MEDS: IPRATROPIUM/ALBUTEROL 0.5-3(2.5)MG/3ML NEB HHN SCH ×5 (02:37→21:11)
[2018-11-25 04:00] VITALS: BP 143/80
[2018-11-25] MEDS: CLONIDINE 0.1MG TABLET PO SCH ×3 (05:29→21:20)
[2018-11-25] MEDS: HYDRALAZINE HCL 100MG TABLET PO SCH ×3 (05:29→21:20)
[2018-11-25 08:00] VITALS: BP 120/64
[2018-11-25] MEDS: FUROSEMIDE 40MG TABLET PO SCH (08:40)
[2018-11-25] MEDS: PREDNISONE 20MG TABLET PO SCH (08:40)
[2018-11-25] MEDS: AMLODIPINE 10MG TABLET PO SCH (08:41)
[2018-11-25] MEDS: CARVEDILOL 6.25 MG TABLET PO SCH ×2 (08:41→20:38)
[2018-11-25] MEDS: RISPERIDONE 1MG TABLET PO SCH ×2 (08:41→20:38)
[2018-11-25] MEDS: METHYLPREDNISOLONE SOD SUCC 40 MG/ML VIAL IV SCH (08:41)
[2018-11-25] MEDS: ENOXAPARIN 30MG/0.3ML SYR SUBCUT SCH ×2 (08:41→20:39)
[2018-11-25] MEDS: LOSARTAN POTASSIUM 50 MG TABLET PO SCH ×2 (08:43→20:38)
[2018-11-25] MEDS: GUAIFENESIN 600MG ER TABLET PO SCH ×2 (08:43→20:37)
[2018-11-25 12:00] VITALS: BP 105/53
[2018-11-25 16:00] VITALS: BP 121/85
[2018-11-25] MEDS: MONTELUKAST SODIUM 10MG TABLET PO SCH (17:25)
[2018-11-25 20:00] VITALS: BP 112/65
[2018-11-26] VITALS: BP 132/81
[2018-11-26] MEDS: IPRATROPIUM/ALBUTEROL 0.5-3(2.5)MG/3ML NEB HHN SCH ×6 (01:42→20:41)
[2018-11-26 04:00] VITALS: BP 146/60
[2018-11-26] MEDS: HYDRALAZINE HCL 100MG TABLET PO SCH ×3 (06:10→21:27)
[2018-11-26] MEDS: CLONIDINE 0.1MG TABLET PO SCH ×3 (06:10→21:24)
[2018-11-26 07:35] LABS: HEMATOCRIT. 39.7 % (36.0-48.0); HEMOGLOBIN. 12.7 g/dL (12.0-16.0); MEAN CORPUSCULAR HEMOGLOBIN 26.8 pg (28.0-32.0); MEAN CORPUSCULAR VOLUME 83.6 fL (81.0-99.0); MEAN PLATELET VOLUME 7.9 fl (7.4-10.4); PLATELET 470 x1000/uL (130-400); RED BLOOD CELL COUNT 4.75 mill/uL (4.2-5.4)
[2018-11-26 07:48] LABS: CHLORIDE 103 mEq/L (98-107)
[2018-11-26 08:00] VITALS: BP 137/73
[2018-11-26 08:38] LABS: PLATELET ESTIMATE INCREASED
[2018-11-26] MEDS: GUAIFENESIN 600MG ER TABLET PO SCH ×2 (08:52→21:23)
[2018-11-26] MEDS: FUROSEMIDE 40MG TABLET PO SCH (08:52)
[2018-11-26] MEDS: PREDNISONE 20MG TABLET PO SCH (08:52)
[2018-11-26] MEDS: AMLODIPINE 10MG TABLET PO SCH (08:53)
[2018-11-26] MEDS: CARVEDILOL 6.25 MG TABLET PO SCH ×2 (08:53→21:23)
[2018-11-26] MEDS: RISPERIDONE 1MG TABLET PO SCH ×2 (08:53→21:23)
[2018-11-26] MEDS: ENOXAPARIN 30MG/0.3ML SYR SUBCUT SCH ×2 (08:53→21:25)
[2018-11-26] MEDS: LOSARTAN POTASSIUM 50 MG TABLET PO SCH ×2 (08:57→21:23)
[2018-11-26 12:00] VITALS: BP 129/74
[2018-11-26 16:00] VITALS: BP 112/48
[2018-11-26] MEDS: MONTELUKAST SODIUM 10MG TABLET PO SCH (17:48)
[2018-11-26 20:00] VITALS: BP 126/63
[2018-11-27] MEDS: IPRATROPIUM/ALBUTEROL 0.5-3(2.5)MG/3ML NEB HHN SCH ×6 (00:29→20:06)
[2018-11-27 02:57] VITALS: BP 128/76
[2018-11-27 04:00] VITALS: BP 152/53
[2018-11-27] MEDS: CLONIDINE 0.1MG TABLET PO SCH ×3 (06:08→21:18)
[2018-11-27] MEDS: HYDRALAZINE HCL 100MG TABLET PO SCH ×3 (06:08→21:12)
[2018-11-27 08:00] VITALS: BP 111/51
[2018-11-27] MEDS: PREDNISONE 20MG TABLET PO SCH (09:19)
[2018-11-27] MEDS: GUAIFENESIN 600MG ER TABLET PO SCH ×2 (09:19→21:13)
[2018-11-27] MEDS: RISPERIDONE 1MG TABLET PO SCH ×2 (09:19→21:13)
[2018-11-27] MEDS: LOSARTAN POTASSIUM 50 MG TABLET PO SCH ×2 (09:19→21:13)
[2018-11-27] MEDS: FUROSEMIDE 40MG TABLET PO SCH (09:19)
[2018-11-27] MEDS: CARVEDILOL 6.25 MG TABLET PO SCH ×2 (09:20→21:12)
[2018-11-27] MEDS: ENOXAPARIN 30MG/0.3ML SYR SUBCUT SCH ×2 (09:20→21:13)
[2018-11-27] MEDS: AMLODIPINE 10MG TABLET PO SCH (09:20)
[2018-11-27 12:00] VITALS: BP 118/61
[2018-11-27 16:00] VITALS: BP 127/70
[2018-11-27] MEDS: MONTELUKAST SODIUM 10MG TABLET PO SCH (16:03)
[2018-11-27 20:00] VITALS: BP 135/73
[2018-11-28] VITALS: BP 100/61
[2018-11-28] MEDS: IPRATROPIUM/ALBUTEROL 0.5-3(2.5)MG/3ML NEB HHN SCH ×6 (00:36→20:59)
[2018-11-28 04:00] VITALS: BP 127/70
[2018-11-28] MEDS: HYDRALAZINE HCL 100MG TABLET PO SCH ×3 (06:00→22:01)
[2018-11-28] MEDS: CLONIDINE 0.1MG TABLET PO SCH ×3 (06:00→22:01)
[2018-11-28 08:00] VITALS: BP 149/90
[2018-11-28] MEDS: GUAIFENESIN 600MG ER TABLET PO SCH ×2 (09:30→20:43)
[2018-11-28] MEDS: AMLODIPINE 10MG TABLET PO SCH (09:31)
[2018-11-28] MEDS: LOSARTAN POTASSIUM 50 MG TABLET PO SCH ×2 (09:31→20:43)
[2018-11-28] MEDS: RISPERIDONE 1MG TABLET PO SCH ×2 (09:31→21:56)
[2018-11-28] MEDS: CARVEDILOL 6.25 MG TABLET PO SCH ×2 (09:31→20:43)
[2018-11-28] MEDS: FUROSEMIDE 40MG TABLET PO SCH (09:31)
[2018-11-28] MEDS: PREDNISONE 20MG TABLET PO SCH (09:31)
[2018-11-28] MEDS: ENOXAPARIN 30MG/0.3ML SYR SUBCUT SCH ×2 (09:34→20:46)
[2018-11-28 12:00] VITALS: BP 111/62
[2018-11-28 16:00] VITALS: BP 109/65
[2018-11-28] MEDS: MONTELUKAST SODIUM 10MG TABLET PO SCH (17:24)
[2018-11-28 20:00] VITALS: BP 125/74
[2018-11-29] VITALS: BP 99/51
[2018-11-29] MEDS: IPRATROPIUM/ALBUTEROL 0.5-3(2.5)MG/3ML NEB HHN SCH ×6 (00:26→20:58)
[2018-11-29 04:00] VITALS: BP 139/70
[2018-11-29] MEDS: HYDRALAZINE HCL 100MG TABLET PO SCH ×3 (06:24→22:09)
[2018-11-29] MEDS: CLONIDINE 0.1MG TABLET PO SCH ×3 (06:24→22:10)
[2018-11-29 08:00] VITALS: BP 146/90
[2018-11-29] MEDS: GUAIFENESIN 600MG ER TABLET PO SCH ×2 (08:56→21:00)
[2018-11-29] MEDS: AMLODIPINE 10MG TABLET PO SCH (08:56)
[2018-11-29] MEDS: CARVEDILOL 6.25 MG TABLET PO SCH ×2 (08:56→20:22)
[2018-11-29] MEDS: RISPERIDONE 1MG TABLET PO SCH ×2 (08:56→20:22)
[2018-11-29] MEDS: LOSARTAN POTASSIUM 50 MG TABLET PO SCH ×2 (08:56→20:22)
[2018-11-29] MEDS: PREDNISONE 20MG TABLET PO SCH (08:56)
[2018-11-29] MEDS: FUROSEMIDE 40MG TABLET PO SCH (08:57)
[2018-11-29] MEDS: ENOXAPARIN 30MG/0.3ML SYR SUBCUT SCH ×2 (08:57→20:24)
[2018-11-29 12:00] VITALS: BP 119/86
[2018-11-29 16:00] VITALS: BP 102/59
[2018-11-29] MEDS: MONTELUKAST SODIUM 10MG TABLET PO SCH (16:35)
[2018-11-29 20:00] VITALS: BP 122/67
[2018-11-30] MEDS: IPRATROPIUM/ALBUTEROL 0.5-3(2.5)MG/3ML NEB HHN SCH ×6 (00:05→20:40)
[2018-11-30] MEDS: CLONIDINE 0.1MG TABLET PO SCH ×3 (05:27→21:29)
[2018-11-30] MEDS: HYDRALAZINE HCL 100MG TABLET PO SCH ×3 (05:27→21:29)
[2018-11-30 08:00] VITALS: BP 129/80
[2018-11-30] MEDS: ENOXAPARIN 30MG/0.3ML SYR SUBCUT SCH ×2 (09:06→21:30)
[2018-11-30] MEDS: FUROSEMIDE 40MG TABLET PO SCH (09:06)
[2018-11-30] MEDS: GUAIFENESIN 600MG ER TABLET PO SCH ×2 (09:07→21:28)
[2018-11-30] MEDS: RISPERIDONE 1MG TABLET PO SCH ×2 (09:07→23:43)
[2018-11-30] MEDS: PREDNISONE 20MG TABLET PO SCH (09:07)
[2018-11-30] MEDS: AMLODIPINE 10MG TABLET PO SCH (09:07)
[2018-11-30] MEDS: CARVEDILOL 6.25 MG TABLET PO SCH ×2 (09:07→21:00)
[2018-11-30] MEDS: LOSARTAN POTASSIUM 50 MG TABLET PO SCH ×2 (09:30→21:28)
[2018-11-30 12:00] VITALS: BP 109/53
[2018-11-30 16:00] VITALS: BP_SYST 110; BP_SYST 136; BP_DIAS 64; BP_DIAS 83
[2018-11-30] MEDS: MONTELUKAST SODIUM 10MG TABLET PO SCH (17:24)
[2018-11-30 20:00] VITALS: BP 104/54
[2018-12-01] VITALS: BP 109/45
[2018-12-01] MEDS: IPRATROPIUM/ALBUTEROL 0.5-3(2.5)MG/3ML NEB HHN SCH ×3 (00:11→08:35)
[2018-12-01 04:00] VITALS: BP 113/50
[2018-12-01] MEDS: HYDRALAZINE HCL 100MG TABLET PO SCH (05:34)
[2018-12-01] MEDS: CLONIDINE 0.1MG TABLET PO SCH (05:35)
[2018-12-01 08:00] VITALS: BP 114/72
[2018-12-01] MEDS: GUAIFENESIN 600MG ER TABLET PO SCH (08:57)
[2018-12-01] MEDS: PREDNISONE 20MG TABLET PO SCH (08:58)
[2018-12-01] MEDS: FUROSEMIDE 40MG TABLET PO SCH (08:58)
[2018-12-01] MEDS: AMLODIPINE 10MG TABLET PO SCH (08:58)
[2018-12-01] MEDS: RISPERIDONE 1MG TABLET PO SCH (08:58)
[2018-12-01] MEDS: CARVEDILOL 6.25 MG TABLET PO SCH (08:58)
[2018-12-01] MEDS: ENOXAPARIN 30MG/0.3ML SYR SUBCUT SCH (08:59)
[2018-12-01 09:05] VITALS: BP 114/72
[2018-12-01] MEDS: LOSARTAN POTASSIUM 50 MG TABLET PO SCH (09:05)
== END 2018-12-01 10:35 | disposition home or self-care (01) | DRG 133 ==
LOC: ER 16:18 → 5EST 20:03 → EDBEDREQSVC 20:06 → EDBEDREQ 20:06 → EDBEDREQTM 20:06 → ENRESERV 20:29 → 6EST 11-19 16:15
PROVIDERS: ADMIT Internal Medicine; ATTEND Internal Medicine
PROC: 5A09357 Assistance with Respiratory Ventilation, Less than 24 Consecutive Hours, Continuous Positive Airway Pressure (ICD-10-PCS; principal; 2018-11-17)
PROC: 5A09357 Assistance with Respiratory Ventilation, Less than 24 Consecutive Hours, Continuous Positive Airway Pressure (ICD-10-PCS; 2018-11-18)
PROC: 5A09357 Assistance with Respiratory Ventilation, Less than 24 Consecutive Hours, Continuous Positive Airway Pressure (ICD-10-PCS; 2018-11-19)
PROC: 5A09357 Assistance with Respiratory Ventilation, Less than 24 Consecutive Hours, Continuous Positive Airway Pressure (ICD-10-PCS; 2018-11-20)
PROC: 5A09357 Assistance with Respiratory Ventilation, Less than 24 Consecutive Hours, Continuous Positive Airway Pressure (ICD-10-PCS; 2018-11-21)
PROC: 5A09357 Assistance with Respiratory Ventilation, Less than 24 Consecutive Hours, Continuous Positive Airway Pressure (ICD-10-PCS; 2018-11-22)
PROC: 5A09357 Assistance with Respiratory Ventilation, Less than 24 Consecutive Hours, Continuous Positive Airway Pressure (ICD-10-PCS; 2018-11-23)
PROC: 5A09357 Assistance with Respiratory Ventilation, Less than 24 Consecutive Hours, Continuous Positive Airway Pressure (ICD-10-PCS; 2018-11-24)
PROC: 5A09357 Assistance with Respiratory Ventilation, Less than 24 Consecutive Hours, Continuous Positive Airway Pressure (ICD-10-PCS; 2018-11-25)
DX: J96.01 Acute respiratory failure with hypoxia (principal); I50.23 Acute on chronic systolic (congestive) heart failure; I27.20 Pulmonary hypertension, unspecified; E87.2 Acidosis; Z68.41 Body mass index [BMI] 40.0-44.9, adult; F20.9 Schizophrenia, unspecified; I42.9 Cardiomyopathy, unspecified; J68.0 Bronchitis and pneumonitis due to chemicals, gases, fumes and vapors; F41.9 Anxiety disorder, unspecified; F31.9 Bipolar disorder, unspecified; E78.5 Hyperlipidemia, unspecified; E66.9 Obesity, unspecified; J00 Acute nasopharyngitis [common cold]; F17.210 Nicotine dependence, cigarettes, uncomplicated; I11.0 Hypertensive heart disease with heart failure; I25.10 Atherosclerotic heart disease of native coronary artery without angina pectoris; G47.33 Obstructive sleep apnea (adult) (pediatric); Z71.6 Tobacco abuse counseling; I36.1 Nonrheumatic tricuspid (valve) insufficiency; Z79.4 Long term (current) use of insulin
CPT/HCPCS: 36415; 36600; 71045; 71275; 80048; 80305; 81003; 82375; 82805; 83605; 83880; 84145; 84484; 84703; 93005; 94640; 94660; 97161; 99285; J1200; J1650; J1940; J2270; J2920; J7512; J7611; J7620; J7626; Q9967